=== PATIENT | male | born 1985 | race Caucasian/White ===

== ENCOUNTER 2017-10-23 10:15 | Emergency (ER) | payer SELFPAY ==
[2017-10-23 10:20] VITALS: BP 219/110; BMI 28.7
[2017-10-23] MEDS ORDERED: TORADOL 30 MG VIAL IVP ONE (10:22)
[2017-10-23] MEDS ORDERED: NS 1000 ML 1,000 ML ONE (10:23)
[2017-10-23] MEDS ORDERED: TORADOL 30 MG VIAL ONE (10:23)
--- NOTE | 2017-10-23 10:25 | DR.GENAD ---
HPI - PCP Primary Care Physician: NFD - Complaint/Symptoms Chief Complaint Doctors Comments: Patient presents with complaint of right flank pain since 0730 this morning. He denies a history of nehprolithiasis, back pain or constipation. He denies fever or vomiting. Chief Complaint:: PATIENT STATES THAT HE HAS A KIDNEY STONE. STARTED HURTING THIS MORNING. HE IS HAVING N/V AND FLANK PAIN - Source History Provided: Patient - Mode of Arrival Mode of Arrival: Ambulatory - Timing Onset of Chief Complaint: 10/23/17 PMH - PMH Past Medical History: No Past Surgical History: Yes Surgical History: Ortho Surgery - Family History History of Family Medical Conditions: Yes Family Medical History: Hypertension - Social History Does patient currently use any type of tobacco product: No Type of Tobacco Use: None Does any household member use tobacco: No Alcohol Use: None Do you use any recreational Drugs:: No Lives With: Family Lives Where: Home - infectious screening In the last 2 months have you had wt loss of >10#?: NO Have you had fever, night sweats or hemotysis?: No Have you traveled outside the country in the last 6 months?: No Isolation: Standard ROS - Review of Systems Eyes: No Symptoms Reported ENTM: No Symptoms Reported Respiratoy: No Symptoms Reported Cardiovascular: No Symptoms Reported Gastrointestinal/Abdominal: No Symptoms Reported Genitourinary: No Symptoms Reported, Discharge Neurological: No Symptoms Reported Musculoskeletal: No Symptoms Reported Integumentary: No Symptoms Reported Hematologic/Lymphatic: No Symptoms Reported Endocrine: No Symptoms Reported Psychiatric: No Symptoms Reported All Other Systems: Reviewed and Negative PE - Vital Signs Vitals: Pulse Rate 66 Respiratory Rate 20 Blood Pressure [Left Arm] 140/90 Blood Pressure 219/110 O2 Sat by Pulse Oximetry 100 - General Limitations: No Limitations General Appearance: Alert, Anxious - Head Head Exam: Normal Inspection, Atraumatic - Eyes Eye exam: Normal Appearance, PERRL, EOMI - ENT ENT Exam: Normal Exam External Ear Exam: Normal External Inspection TM/Canal Exam: Bilateral Normal Nose Exam: Normal Nose Exam Mouth Exam: Normal Inspection Throat Exam: Normal Inspection - Neck Neck Exam: Normal Inspection, Full ROM - Chest Chest Inspection: Normal Inspection, Symmetric Chest Wall Rise - Respiratory Respiratory Exam: Normal Lung Sounds Bilat Respiratory Exam: Bilateral Clear to Auscultation - Cardiovascular Cardiovascular Exam: Regular Rate, Normal Rhythm - Abdominal Exam Abdominal Exam: Normal Inspection, Normal Bowel Sounds Abdominal Tenderness: negative: RUQ, RLQ, LUQ, LLQ, Epigastrium, Suprapubic, Diffuse, Mild, Moderate, Severe, Other - Extremities Extremities Exam: Normal Inspection - Back Back Exam: Normal Inspection, Tenderness (right flank pain) - Neurologic Neurological Exam: Alert, Oriented X3, CN II-XII Intact - Psychiatric Psychiatric Exam: Normal Affect - Skin Skin Exam: Warm, Dry, Intact Course - Reevaluation 1st: Improved - Education/Counseling Education/Counseling: Patient, Family Educated On: Treatment, Diagnosis, Needs for Follow Up ROR - Labs Reviewed Laboratory: Specimen Type Clean catch urine 10/23/17 11:00 Urine Color Yellow (YELLOW) 10/23/17 11:00 Urine Appearance Slightly hazy (CLEAR) 10/23/17 11:00 Urine pH 6.0 (5.0 - 8.0) 10/23/17 11:00 Ur Specific [place] 1.020 (1.000-1.030) 10/23/17 11:00 Urine Protein 2+ (NEGATIVE) 10/23/17 11:00 Urine Glucose (UA) Negative (NEGATIVE) 10/23/17 11:00 Urine Ketones Negative (NEGATIVE) 10/23/17 11:00 Urine Occult Blood 5+ (NEGATIVE) 10/23/17 11:00 Urine Nitrite Negative (NEGATIVE) 10/23/17 11:00 Urine Bilirubin Negative (NEGATIVE) 10/23/17 11:00 Urine Urobilinogen 1+ (NORMAL) 10/23/17 11:00 Ur Leukocyte Esterase 1+ (NEGATIVE) 10/23/17 11:00 Urine RBC 50 - 75 /HPF (NEGATIVE) 10/23/17 11:00 Urine WBC Rare /HPF (NEGATIVE) 10/23/17 11:00 Ur Squamous Epith Cells Rare /HPF (NEGATIVE) 10/23/17 11:00 Amorphous Sediment Trace /HPF (NEGATIVE) 10/23/17 11:00 Urine Bacteria Negative /HPF (NEGATIVE) 10/23/17 11:00 Urine Mucus Moderate /HPF (NEGATIVE) 10/23/17 11:00 Ur Culture Indicated? No/not indicated 10/23/17 11:00 - Other Results Comments: Patient is to follow up with urology tomorrow. - XRAY XRAY Interpreted by: Radiologist (CT Abd/Pelv: There is a 7mm right distal ureteral stone causing moderate hydronephrosis/hydroureter. 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 Remaining osseous structuures are intact.) - Diagnosis Discharge Problem: Hydroureteronephrosis - Discharge Plan Condition: Stable - Follow ups/Referrals Follow ups/Referrals: NFD,None [Primary Care Provider] - 3 days - Instructions
[2017-10-23] MEDS ORDERED: NS 1000 ML 1,000 ML IV SCH (11:00)
[2017-10-23 11:18] LABS: BILIRUBIN,URINE NEGATIVE (NEGATIVE); BLOOD/HEMOGLOBIN,URINE 5+ (NEGATIVE); GLUCOSE, URINE NEGATIVE (NEGATIVE); KETONES,URINE NEGATIVE (NEGATIVE); LEUKOCYTE ESTERASE ,URINE 1+ (NEGATIVE); NITRITES,URINE NEGATIVE (NEGATIVE); PROTEIN,URINE 2+ (NEGATIVE); UROBILINOGEN,URINE 1+ (NORMAL)
[2017-10-23 11:34] LABS: COLOR,URINE YELLOW (YELLOW)
[2017-10-23 11:35] LABS: APPEARANCE,URINE SLIGHTLY HAZY (CLEAR); BACTERIA,URINE NEGATIVE /HPF (NEGATIVE); MUCUS,URINE MODERATE /HPF (NEGATIVE); RBC,URINE 50 - 75 /HPF (NEGATIVE); SQUAMOUS EPITHELIAL CELL,UR RARE /HPF (NEGATIVE)
[2017-10-23 11:36] LABS: AMORPHOUS SEDIMENT,UR TRACE /HPF (NEGATIVE)
[2017-10-23] MEDS ORDERED: MORPHINE SULFATE INJ 4 MG IVP ONE (11:41)
[2017-10-23] MEDS ORDERED: MORPHINE SULFATE INJ 4 MG ONE (11:49)
--- NOTE | 2017-10-23 12:55 | CT ---
HISTORY: Hematuria and right flank pain. Study: CT abdomen and pelvis without contrast Comparison: None Technique: Multiple axial images of the abdomen and pelvis were obtained from the lung bases to the pubic symphy sis without the administration of IV contrast. Dose reduction techniques including Automated Exposur e Control (AEC) and adjustment of mA and kV were utilized. Findings: Limited evaluation secondary to lack of IV and oral contrast. The visualized portions of the lung bases are unremarkable. There is a 7 mm right distal ureteral sto ne causing moderate hydronephrosis/hydroureter. No other stones are seen within the collecting system . The liver, spleen, pancreas, left kidney, and adrenal glands are unremarkable in their CT appearanc e. The gallbladder is unremarkable in its CT appearance. No significant mesenteric lymphadenopathy o r stranding can be observed. No free fluid or free air is seen within the abdomen. The large and sm all bowel are unremarkable. The appendix appears normal. The urinary bladder is grossly unremarkable. Bilateral L5 pars defects without associated listhesis. Remaining osseous structures are intact. IMPRESSION: 7 mm right distal ureteral stone causing moderate hydronephrosis/hydroureter. Reported By:
== END 2017-10-23 13:27 | disposition home or self-care (01) ==
LOC: ER 10:28
DX: N13.30 Unspecified hydronephrosis (principal); R10.84 Generalized abdominal pain
CPT/HCPCS: 74176; 81001; 96365; 96367; 96374; 96375; 99283; A4222; J1885; J2270